=== PATIENT | female | born 1960 | race African-American/Black ===

== ENCOUNTER 2017-05-14 15:44 | Inpatient (IN) | payer MEDICAID ==
[~2017-05-14] VITALS: Ht 157.5 cm; Wt 91.3 kg
[2017-05-14] MEDS ORDERED: HALOPERIDOL 5 MG TABLET PO ONE (16:30)
[2017-05-14] MEDS ORDERED: DiphenhydrAMINE HCL 25 MG CAPSULE PO ONE (16:30)
[2017-05-14] MEDS ORDERED: LORazepam 2 MG TABLET PO ONE (16:30)
[2017-05-14 17:13] LABS: ANION GAP 12 mmol/L (8-16); CARBON DIOXIDE 23 mmol/L (22-29); CHLORIDE 106 mmol/L (98-107); CREATININE 0.84 mg/dL (0.60-1.30); GLOMERULAR FILTR. RATE CALC > 60 mL/min (>60); GLUCOSE,RANDOM 118 mg/dL (70-110); POTASSIUM 3.7 mmol/L (3.5-5.1); SODIUM SERUM 141 mmol/L (136-145); UREA NITROGEN, BLOOD 13 mg/dL (7-18)
[2017-05-14 17:19] LABS: ALANINE AMINOTRANSFERASE 42 U/L (12-78); ALBUMIN 3.8 g/dL (3.4-5.0); ALKALINE PHOSPHATASE 137 U/L (46-116); ASPARTATE AMINOTRANSFERASE 21 U/L (15-37); BILIRUBIN,TOTAL 0.3 mg/dL (0.1-1.0); TOTAL PROTEIN, SERUM 7.8 g/dL (6.4-8.2)
[2017-05-14 18:07] LABS: RED BLOOD CELL COUNT(AUTO) 5.81 MIL/uL (4.00-5.20)
[2017-05-14 18:08] LABS: BASOPHILS % (AUTO) 0.7 % (0.0-2.0); EOSINOPHILS % (AUTO) 0.9 % (1.0-6.0); HEMATOCRIT 47.6 % (36-46); LYMPHOCYTES % (AUTO) 43.3 % (22.0-44.0); MEAN CORPUSCULAR HEMOGLOBIN 27.5 pg (26.0-34.0); MEAN CORPUSCULAR HGB CONC 33.6 G/dL (31.0-37.0); MEAN CORPUSCULAR VOLUME 82 fL (80-100); MONOCYTES # (AUTO) 0.8 K/uL (0.1-1.0); MONOCYTES % (AUTO) 7.2 % (2.0-9.0); NEUTROPHILS # (AUTO) 5.5 K/uL (1.8-7.7); NEUTROPHILS % (AUTO) 47.9 % (40.0-70.0); PLATELET COUNT (AUTO) 343 K/uL (150-450); RED CELL DISTRIBUTION WIDTH 14.9 % (11.5-14.5)
[2017-05-14 18:09] LABS: PLATELET MORPHOLOGY COMMENT NORMAL
[2017-05-14 18:24] LABS: APPEARANCE,URINE CLOUDY (CLEAR); BILIRUBIN,URINE NEGATIVE (NEGATIVE); GLUCOSE, URINE (UA) NEGATIVE (NEGATIVE); KETONES,URINE NEGATIVE (NEGATIVE); LEUKOCYTE ESTERASE ,URINE SMALL (NEGATIVE); OCCULT BLOOD,URINE NEGATIVE (NEGATIVE); PH,URINE 5.5 (5.0-8.0); PROTEIN,URINE NEGATIVE (NEGATIVE)
[2017-05-14 18:30] LABS: BACTERIA,URINE Many /HPF (None Seen); NITRATE,URINE POSITIVE (NEGATIVE); RBC,URINE 0-2 /HPF (0-2); SQUAMOUS EPITHELIAL CELL,UR Few /LPF (None Seen)
[2017-05-14 18:31] LABS: AMPHET/METH SCREEN,URINE NEGATIVE (NEGATIVE); BARBITURATE SCREEN, URINE NEGATIVE (NEGATIVE); BENZODIAZEPINES SCREEN,URINE NEGATIVE (NEGATIVE); CANNABINOID SCREEN,URINE NEGATIVE (NEGATIVE); COCAINE SCREEN,URINE POSITIVE (NEGATIVE); METHADONE SCREEN, URINE NEGATIVE (NEGATIVE); OPIATE SCREEN,URINE NEGATIVE (NEGATIVE)
[2017-05-14 18:32] LABS: PHENCYCLIDINE SCREEN,URINE NEGATIVE (NEGATIVE)
[2017-05-14 19:24] VITALS: BP 104/71
[2017-05-14] MEDS ORDERED: INFLUENZA VIRUS VACCINE QVS 2017-18 (3YR+)/PF 60 MCG/0.5 ML SYRINGE IM ONE (20:30)
[2017-05-14] MEDS ORDERED: CIPROFLOXACIN HCL 500 MG TABLET PO SCH (21:00)
[2017-05-14] MEDS ORDERED: CIPROFLOXACIN HCL 250 MG TABLET PO SCH (21:00)
[2017-05-15 06:10] VITALS: BP 100/67
[2017-05-15 08:18] VITALS: BP 102/52
[2017-05-15] MEDS: HALOPERIDOL 5 MG TABLET PO PRN ×2 (08:46→17:50)
[2017-05-15] MEDS: RisperiDONE 1 MG TABLET PO SCH ×2 (08:47→20:15)
[2017-05-15] MEDS: SERTRALINE HCL 50 MG TABLET PO SCH (08:47)
[2017-05-15] MEDS: CIPROFLOXACIN HCL 250 MG TABLET PO SCH ×2 (08:48→16:45)
[2017-05-15 09:24] LABS: CHOL/HDL RATIO 4.6 (3.9-5.7)
[2017-05-15] MEDS: NICOTINE 14 MG/24 HOUR PATCH TD SCH (09:51)
[2017-05-15] MEDS ORDERED: ACETAMINOPHEN 325 MG TABLET PO PRN (14:30)
[2017-05-15] MEDS ORDERED: IBUPROFEN 400 MG TABLET PO PRN (14:30)
[2017-05-15 16:09] VITALS: BP 103/64
[2017-05-15] MEDS: LORazepam 2 MG TABLET PO PRN (17:50)
[2017-05-15] MEDS: SIMVASTATIN 10 MG TABLET PO SCH (20:15)
[2017-05-16 07:15] VITALS: BP 114/81
[2017-05-16 08:24] VITALS: BP 106/60
[2017-05-16] MEDS: NICOTINE 14 MG/24 HOUR PATCH TD SCH (08:53)
[2017-05-16] MEDS: RisperiDONE 1 MG TABLET PO SCH ×2 (08:53→21:02)
[2017-05-16] MEDS: CIPROFLOXACIN HCL 250 MG TABLET PO SCH ×2 (08:53→16:39)
[2017-05-16] MEDS: SERTRALINE HCL 50 MG TABLET PO SCH (08:53)
[2017-05-16] MEDS: LORazepam 2 MG TABLET PO PRN ×2 (08:57→16:39)
[2017-05-16 16:09] VITALS: BP 109/61
[2017-05-16] MEDS: HALOPERIDOL 5 MG TABLET PO PRN (16:39)
[2017-05-16] MEDS: SIMVASTATIN 10 MG TABLET PO SCH (21:02)
[2017-05-16] MEDS: ZOLPIDEM TARTRATE 10 MG TABLET PO PRN (21:02)
[2017-05-17 06:57] VITALS: BP 110/62
[2017-05-17] MEDS: CIPROFLOXACIN HCL 250 MG TABLET PO SCH ×2 (08:05→16:32)
[2017-05-17] MEDS: SERTRALINE HCL 50 MG TABLET PO SCH (08:05)
[2017-05-17] MEDS: NICOTINE 14 MG/24 HOUR PATCH TD SCH (08:05)
[2017-05-17] MEDS: RisperiDONE 1 MG TABLET PO SCH ×2 (08:05→20:46)
[2017-05-17 08:07] VITALS: BP 115/66
[2017-05-17] MEDS: LORazepam 2 MG TABLET PO PRN ×2 (12:41→17:56)
[2017-05-17 16:26] VITALS: BP 118/75
[2017-05-17] MEDS: SIMVASTATIN 10 MG TABLET PO SCH (20:46)
[2017-05-17] MEDS: ZOLPIDEM TARTRATE 10 MG TABLET PO PRN (20:46)
[2017-05-18 07:12] VITALS: BP 110/62
[2017-05-18] MEDS: CIPROFLOXACIN HCL 250 MG TABLET PO SCH (08:16)
[2017-05-18] MEDS: SERTRALINE HCL 50 MG TABLET PO SCH (08:16)
[2017-05-18] MEDS: RisperiDONE 1 MG TABLET PO SCH (08:16)
[2017-05-18] MEDS: LORazepam 2 MG TABLET PO PRN (08:19)
[2017-05-18] MEDS: NICOTINE 14 MG/24 HOUR PATCH TD SCH (08:20)
[2017-05-18 08:44] VITALS: BP 126/66
[2017-05-18] MEDS ORDERED: RISP1TAB89 PO (15:36)
[2017-05-18] MEDS ORDERED: SERT25TA PO (15:36)
[2017-05-18] MEDS ORDERED: SIMV10TA2 PO (15:37)
[2017-05-18] MEDS ORDERED: CIPR500S5 PO (15:37)
== END 2017-05-18 16:15 | disposition home or self-care (01) | DRG 750 ==
LOC: EMS 15:46 → B3A 19:13
DX: F25.1 Schizoaffective disorder, depressive type (principal); R45.851 Suicidal ideations; N39.0 Urinary tract infection, site not specified; F14.10 Cocaine abuse, uncomplicated; F41.9 Anxiety disorder, unspecified; F17.200 Nicotine dependence, unspecified, uncomplicated; F99 Mental disorder, not otherwise specified; F19.10 Other psychoactive substance abuse, uncomplicated; F10.10 Alcohol abuse, uncomplicated; E78.5 Hyperlipidemia, unspecified; Z79.899 Other long term (current) drug therapy; Z81.8 Family history of other mental and behavioral disorders; Z91.5 Personal history of self-harm; Z71.51 Drug abuse counseling and surveillance of drug abuser
CPT/HCPCS: 87086; G0480